=== PATIENT | male | born 1990 | race Caucasian/White ===

== ENCOUNTER 2016-05-31 10:34 | Emergency (ER) | payer OTHER ==
[~2016-05-31] VITALS: Ht 177.8 cm; Wt 97.7 kg
[~2016-05-31 10:34] MED LIST: SULF1TAB35 PO; SULF1TAB7 PO
[2016-05-31 10:42] VITALS: BP 151/90; PULSE 96; RESP 20; O2SAT 96
--- NOTE | 2016-05-31 11:29 | ED.REPORT ---
HPI-Hand Prob/Inj Date of Service May 31, 2016 ED Provider: Dr. Mojica A 26 year old male with a history of IV heroin abuse and diabetes presents to the ED complaining extreme left little finger pain onset 26 days ago after the patient injected heroin into his finger on 05/04/2016. He initially went to [facility] at onset, then went to [place] soon after when the pain would not resolve. He was prescribed topical nitroglycerine cream by a hand surgeon from [place], but is not able to follow up with the surgeon because he is unable to get to [place]. Nitroglycerine cream has not resulted in relief. He denies narcotic withdrawal symptoms, reporting that he is not a regular heroin user. His last use was a few days ago. He denies any other symptoms. He denies fever or symptoms outside his finger. Nursing Notes Stated Complaint: FINGER LEFT HAND Chief Complaint: Extremity Trauma Nursing Notes Reviewed: Yes Allergies: Coded Allergies: No Known Allergies (Verified , 11/04/15) Scheduled Sulfamethoxazole/Trimeth 800-160 mg (Bactrim DS) 1 Each Tablet 1 TABLET PO BID Sulfamethoxazole/Trimeth 800-160 mg (Bactrim DS 800-160 mg) 1 Each Tablet 1 TABLET PO BID General Time Seen by Provider: 11:29 Chief Complaint Finger injury left Hx Obtained From: Patient Arrived By: Walk-in Onset Occurred: More than a week ago... (26 days ago) Symptom Duration: Since onset Progression Since Onset: Gradually worsening Location: Left Hand: : Finger... (Little) Severity: Current: Severe Severity: Maximum: Severe Recent Healthcare: Recent doctor visit Similar Sx Previous: No Past Medical History Past Medical History History of IV heroin abuse previous abscesses diabetes mellitus Past Surgical History Reports: Cholecystectomy Family History Mother and father of [place], brother from heroin overdose Smoking History Current Every Day Smoker Social History Denies meth or cocaine use. Alcohol Use: Denies alcohol use Drug Use: IV drugs, THC Other Social History: Poor social support, Local resident, Homeless Ambulatory Status Independent Review of Systems Review of Systems Note: Denies withdrawal. Constitutional: Denies: Chills, Fever Musculoskeletal: Reports: Extremity pain (left hand little finger), Extremity swelling (left hand little finger) Complete sys rev & neg: except as marked. Physical Exam Initial Vital Signs Vital Signs (First) Date Time Temp Pulse Resp B/P Pulse Ox O2 Delivery O2 Flow Rate FiO2 05/31/16 10:42 36.8 96 20 151/90 96 Room Air Initial VS: Reviewed General/Constitutional: Well-developed, Well-nourished Head / Eyes: Atraumatic, Normocephalic, PERRL ENT: Mucous membranes moist, No scleral icterus Neck: Supple, Non-tender, Full range of motion Respiratory: No respiratory distress Extremities: Neuro intact Skin: Warm, Dry, No cyanosis Neurologic: Alert, Oriented, Nonfocal Psychiatric: Mood/affect normal, Behavior normal, Normal thought content Left Hand: Positive: Tenderness present... (gangrenous little finger on left hand distal to the DIP joint) General/Constitutional: Awake, Alert Skin: Warm, Dry Neurologic: Oriented X3, Speech NL Head / Eyes: Atraumatic, Normocephalic, PERRL, EOMI ENT: Atraumatic, Airway patent Re-Eval/Medical Decision Med Decision/Clinical Course After having made arrangements with Dr. Saini from orthopedic surgery for outpatient follow-up tomorrow, we went back to the room to talk to the patient and he had left without being discharged. I made an attempt calling the phone number but after answering the phone he immediately hung up. No prescriptions were given no follow-up instructions were given. Follow-up plan had been to follow-up at the clinic tomorrow for scheduled amputation of the affected finger. Source of Hx: Old records Re-Evaluation/Progress : Time of Eval: 14:55 Re-Evaluation/Progress Note: Went to recheck patient who is no longer in the room. 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 Saini who will see the patient in is office during a follow-up appointment. Dr. Saini agrees to refer the patient to [facility] after this follow-up appointment. Counseled Regarding: Diagnosis, Need for follow-up, When/why to return to ED Discharge & Departure Primary Impression: Gangrene of finger Disposition: AGAINST MEDICAL ADVICE Referrals: [facility] (PCP) Scribe Attestation Portions of this note were transcribed by Damion Jones. IDr. Mojica personally performed the history, physical exam and medical decision-making; I reviewed and confirmed the accuracy of the information in the transcribed note. Signed by: Warren Ontiveros, 05/31/2016, [id number]. copies to: [facility] [place] Mojica MD May 31, 2016 11:29 Damion Jones May 31, 2016 11:36
== END 2016-05-31 15:02 | disposition left against medical advice (07) ==
LOC: SED 10:34
DX: I96 Gangrene, not elsewhere classified (principal); E11.9 Type 2 diabetes mellitus without complications; F17.200 Nicotine dependence, unspecified, uncomplicated; F11.20 Opioid dependence, uncomplicated; F12.10 Cannabis abuse, uncomplicated

== ENCOUNTER 2016-07-03 14:04 | Emergency (ER) | payer OTHER ==
[~2016-07-03] VITALS: Ht 177.8 cm; Wt 100.0 kg
[2016-07-03 14:07] VITALS: BP 132/93; PULSE 106; RESP 20; O2SAT 98
--- NOTE | 2016-07-03 14:48 | ED.REPORT ---
HPI-Extremity Problem Upper Date of Service July 03, 2016 ED Provider: Paz Easton History of Present Illness: 26-year-old male here with left fifth digit pain. Had the left fifth digit surgically removed up for an infection [address] Goss up in [place]. He was prescribed 50 Percocet 7.5 and he has taken all of them. He went for his recheck with Dr. Goss 1 week ago and everything was healing normally and was discharged from his practice. 3 days ago he ran out of Percocet and has not had anything for pain. He tried ibuprofen does not help. He states he has resistant to tramadol and Vicodin. He has a history of IV drug use which is how he lost his fifth digit. He states he has not used since late April. He followed up with [facility] for pain meds today but they will not prescribe any Percocet. He is looking for a new PCP that we will prescribe him this medication. It hurts worse when there is no bandage over the surgical site. He has not been able to put a bandage on it as the Steri-Strips have come off he states. No new erythema and no new pain, no purulent drainage Nursing Notes Stated Complaint: PAIN MEDS/FOLLOW UP FROM SURGERY/SENT FROM [facility] Chief Complaint: Extremity Trauma Nursing Notes Reviewed: Yes Allergies: Coded Allergies: No Known Allergies (Verified , 11/04/15) Scheduled Sulfamethoxazole/Trimeth 800-160 mg (Bactrim DS) 1 Each Tablet 1 TABLET PO BID Sulfamethoxazole/Trimeth 800-160 mg (Bactrim DS 800-160 mg) 1 Each Tablet 1 TABLET PO BID General Time Seen by MD: 14:27 Chief Complaint Finger injury left 5 Hx Obtained From: Patient Arrived By: Walk-in Onset Occurred: More than a week ago... (2 months) Symptom Duration: Waxes and wanes Location: : Finger left 5 Severity: Current: Moderate Severity: Maximum: Severe Associated with: Denies: Fever, Joint swelling, Nausea, Wound discharge Pertinent Negative: Pt denies other symptoms Pertinent Negative: Exacerbated by nothing Immunizations: All up to date Recent Healthcare: Recent doctor visit Similar Sx Previous: No Past Medical History Past Medical History History of IV heroin abuse previous abscesses diabetes mellitus Past Surgical History Reports: Cholecystectomy Family History Mother and father of [place], brother from heroin overdose Smoking History Current Every Day Smoker Social History Denies meth or cocaine use. Alcohol Use: Denies alcohol use Drug Use: IV drugs, THC Other Social History: Poor social support, Local resident, Homeless Ambulatory Status Independent Review of Systems Review of Systems Note: continued pain since surgery, removal of L 5th digit. no new erythema, swelling, drainage. looking for narcotic rx Basic Review of Systems Respiratory: No shortness of breath, No cough, No wheeze GI: No abdominal pain, No anorexia, No nausea, No vomiting Psychiatric: Normal thought content Constitutional: Denies: Chills, Fatigue, Fever Skin: Denies Swelling Complete sys rev & neg: except as marked. Respiratory: Denies: Dyspnea on exertion, Non-productive cough Cardiovascular: Denies: Chest pain GI: Denies: Nausea, Vomiting Physical Exam Initial Vital Signs Vital Signs (First) Date Time Temp Pulse Resp B/P Pulse Ox O2 Delivery O2 Flow Rate FiO2 07/03/16 14:07 36 106 20 132/93 98 Room Air Initial VS: Reviewed, Vital signs normal General/Constitutional: Well-developed, Well-nourished Head / Eyes: Atraumatic, Normocephalic, PERRL Respiratory: Breath sounds normal, Clear to auscultation, No respiratory distress Cardiovascular: Regular rate & rhythm, Heart sounds normal, Intact distal pulses Skin: Warm, Dry, No cyanosis Neurologic: Alert, Oriented, Nonfocal Psychiatric: Mood/affect normal, Behavior normal, Normal thought content General/Constitutional: Awake, Alert, Well appearing occasionally crying through exam Respiratory / Chest: Breath sounds NL, Breath sounds = bilat, No respiratory distress, No rales, No rhonchi, No wheezing Cardiovascular: Heart rate NL, Regular rhythm, Heart sounds NL, Peripheral circulation NL L 5th digit- removed. base of digit with slight erythema/nisha hue. no draingae noted. nontender around surgical site, surgical site scabbed over, healing well. Re-Eval/Medical Decision Med Decision/Clinical Course looked for pt in room. not there , not in bathroom giving UDS. presumed left before we could finish visit. Discharge & Departure Shift Change Sign-Out Response to Therapy: Unchanged Impression: Primary Impression: Pain in finger of left hand Disposition: AGAINST MEDICAL ADVICE Discharge Condition All VS Reviewed: Yes Additional Instructions: left prior to d/c. Referrals: [facility] (PCP) EDSupervising Provider for APC: Hu Edwards MD, Linnea K ARNP July 03, 2016 14:48
== END 2016-07-03 15:13 | disposition left against medical advice (07) ==
LOC: SED 14:04
DX: M79.645 Pain in left finger(s) (principal); Y83.5 Amputation of limb(s) as the cause of abnormal reaction of the patient, or of later complication, without mention of misadventure at the time of the procedure; Y93.89 Activity, other specified; Y92.89 Other specified places as the place of occurrence of the external cause; Y99.8 Other external cause status; E11.9 Type 2 diabetes mellitus without complications; F17.200 Nicotine dependence, unspecified, uncomplicated; Z90.89 Acquired absence of other organs; Z76.0 Encounter for issue of repeat prescription; Z59.0 Homelessness

== ENCOUNTER 2016-08-07 02:29 | Emergency (ER) | payer OTHER ==
[~2016-08-07] VITALS: Ht 177.8 cm; Wt 100.0 kg
[2016-08-07 02:35] VITALS: BP 130/90; PULSE 100; RESP 24; O2SAT 96
--- NOTE | 2016-08-07 02:41 | ED.REPORT ---
HPI-Dental/Mouth Prob Date of Service Aug 07, 2016 ED Provider: Dr. Oviedo 26 y/o male with a hx of IV heroin abuse and diabetes presents to the ED complaining of dental pain in the left lower jaw, onset yesterday. Associated sx include left lower jaw swelling. He has never experienced similar sx before.The pt states he is still using heroin but he is set up for rehab with [facility]. Nursing Notes Stated Complaint: MOUTH PAIN Chief Complaint: Dental Nursing Notes Reviewed: Yes Allergies: Coded Allergies: No Known Allergies (Verified , 08/07/16) Scheduled Clindamycin (Clindamycin) 300 Mg Capsule 600 MG PO TID Sulfamethoxazole/Trimeth 800-160 mg (Bactrim DS) 1 Each Tablet 1 TABLET PO BID Sulfamethoxazole/Trimeth 800-160 mg (Bactrim DS 800-160 mg) 1 Each Tablet 1 TABLET PO BID Scheduled PRN Naproxen (Naprosyn) 500 Mg Tablet 500 MG PO BID PRN PRN For Pain General Time Seen by MD: 02:41 Chief Complaint Tooth pain Hx Obtained From: Patient Arrived By: Walk-in Onset Occurred: Yesterday Symptom Duration: Since onset Location: : Tooth lower L molar Quality: Painful Radiation: : Does not radiate Severity: Current: Severe Severity: Maximum: Severe Recent Healthcare: No recent doctor visit Similar Sx Previous: No Past Medical History Past Medical History History of IV heroin abuse previous abscesses diabetes mellitus Past Surgical History Reports: Cholecystectomy Family History Mother and father of [place], brother from heroin overdose Smoking History Current Every Day Smoker Social History Denies meth or cocaine use. Alcohol Use: Denies alcohol use Drug Use: IV drugs (heroin), THC Other Social History: Poor social support, Local resident, Homeless Ambulatory Status Independent Review of Systems Reports: left jaw swelling Ears / Nose / Throat: Reports: Mouth pain (left jaw pain), Toothache Complete sys rev & neg: except as marked. Physical Exam Initial Vital Signs Vital Signs (First) Date Time Temp Pulse Resp B/P Pulse Ox O2 Delivery O2 Flow Rate FiO2 08/07/16 02:35 36.7 100 24 130/90 96 Room Air Initial VS: Reviewed, Vital signs normal Head / Eyes: Atraumatic, Normocephalic Respiratory: Breath sounds normal, No respiratory distress Cardiovascular: Regular rate & rhythm Extremities: Vascular intact, Neuro intact, No swelling, No tenderness Skin: Warm, Dry, No cyanosis Neurologic: Alert, Oriented, Nonfocal ENT: Atraumatic, Airway patent, Mucous membranes moist, Pharynx NL, No trismus , Mastoid area NL Pharynx / Tonsils / Uvula: Negative: Uvula deviated L, Uvula deviated R Swollen left lower jaw Abscess under tooth #20 Neck: Atraumatic, Supple, Full range of motion General/Constitutional: Awake, Alert, Cooperative Distress / Hydration: Positive: Distress moderate Track goodman over both arms Re-Eval/Medical Decision Med Decision/Clinical Course 18-year-old with a dental abscess and swelling in the lower left jaw and cheek. No medial swelling, no trismus, no pharyngeal compromise, no tongue compromise. Begun with Decadron here. Clindamycin 600 3 times a day. Ibuprofen 3-4 times a day. Follow-up with dentist NE[facility]. Plans to establish for drug treatment within the next two weeks. Re-Evaluation/Progress : Time of Eval: 02:46 Re-Evaluation/Progress Note: Discussed diagnosis and plan to discharge. Pt understands and agrees with the plan. F/U instructions and RTER warning given. All questions addressed. Counseled Regarding: Diagnosis, Need for follow-up, When/why to return to ED Discharge & Departure Primary Impression: Dental abscess Additional Impression: IV drug abuse Disposition: Home Discharge Condition All VS Reviewed: Yes Condition: Stable Patient Instructions: Dental Abscess (ED) Additional Instructions: Begin clindamycin two capsules three times daily. Naprosyn twice daily Call dentist tomorrow to set up an appointment as soon as possible Follow-up with your regular doctor. You may follow-up at [facility], or at residency clinic if local coverage as needed. Referrals: [facility] Residency [facility] Scribe Attestation Portions of this note were transcribed by Kierra Desai. I, , personally performed the history, physical exam and medical decision- making;I reviewed and confirmed the accuracy of the information in the transcribed note. Signed by Warren Reyna. 08/07/16 02:56 Chaz Oviedo MD Aug 07, 2016 02:41 Kierra Desai Aug 07, 2016 02:48
[2016-08-07] MEDS ORDERED: Dexamethasone 20 mg/2 mL Oral Solution PO ONE (02:45)
[2016-08-07] MEDS ORDERED: CLIN-78 PO (02:51)
[2016-08-07] MEDS ORDERED: NAPR500T PO (02:51)
[2016-08-07 03:14] VITALS: BP 121/78; PULSE 98; RESP 18; O2SAT 96
== END 2016-08-07 03:12 | disposition home or self-care (01) ==
LOC: SED 02:29
DX: K04.7 Periapical abscess without sinus (principal); F13.10 Sedative, hypnotic or anxiolytic abuse, uncomplicated; E11.9 Type 2 diabetes mellitus without complications; F17.200 Nicotine dependence, unspecified, uncomplicated; Z79.2 Long term (current) use of antibiotics; Z79.1 Long term (current) use of non-steroidal anti-inflammatories (NSAID); Z59.0 Homelessness